=== PATIENT | female | born 1990 | race Caucasian/White ===

== ENCOUNTER 2022-05-13 09:54 | Inpatient (IN) | payer BC ==
[2022-05-13 10:29] VITALS: BMI 35.7
[2022-05-13] MEDS ORDERED: hydrALAZINE 20 MG/ML VIAL ONE (10:46)
[2022-05-13 11:22] LABS: Hemoglobin 12.1 g/dL (12.0-15.5); Mean Corpuscular HGB CONC 34.5 g/dL (32.0-36.0); Mean Platelet Volume 9.5 fl (7.4-10.4); Platelet Count 280 10x3/uL (150-450); RBC Distribution Width 13.1 % (11.5-14.5); White Blood Cell (WBC) Count 11.6 10x3/uL (3.5-10.5)
[2022-05-13 11:27] LABS: ALT (SGPT) 7 U/L (8-55); AST (SGOT) 13 U/L (5-34); Albumin 3.4 g/dL (3.5-5.0); Alkaline Phosphatase 77 U/L (40-110); Anion Gap 14 mmol/L (10-20); BUN (Urea Nitrogen) 7 mg/dL (7.0-18.7); Bilirubin, Total 0.3 mg/dL (0.2-1.2); Calc. Creatinine Clearance 235 mL/min (70-130); Calcium 8.7 mg/dL (7.8-10.44); Carbon Dioxide 19 mmol/L (22-29); Chloride 106 mmol/L (98-107); Estimated GFR 123; Glucose 168 mg/dL (70-105); Protein, Total 6.4 g/dL (6.0-8.3); Sodium 135 mmol/L (136-145)
[2022-05-13 11:50] LABS: SARS-CoV-2 NAA Rapid Test Not Detected (NotDetected)
[2022-05-13 12:18] LABS: Syphilis Antibody Nonreactive (Nonreactive); Syphilis Antibody Index 0.09 S/CO (<1.00 Non-Reactive)
[2022-05-13 12:19] LABS: HBSAg Index 0.17 S/CO (0-0.99); Hep B Surf Ag Non-Reactive S/CO (NonReactive)
[2022-05-13] MEDS ORDERED: hydrALAZINE 20 MG/ML VIAL SLOW IVP PRN (14:13)
[2022-05-13] MEDS ORDERED: Lidocaine 1% (PF) 30 ML VIAL SC PRN (14:13)
[2022-05-13] MEDS ORDERED: Promethazine HCl 25 MG/ML VIAL IM PRN (14:13)
[2022-05-13] MEDS ORDERED: Ondansetron PF 4 MG/2 ML Vial IVP PRN (14:13)
[2022-05-13] MEDS ORDERED: Oxymetazoline HCl 0.05% ( 15 ML ) NASAL PRN (20:20)
[2022-05-13] MEDS ORDERED: Acetaminophen 500 MG TAB PO PRN (21:12)
[2022-05-13] MEDS ORDERED: NIFEdipine XL 30 MG TAB PO SCH (21:45)
[2022-05-13] MEDS ORDERED: Dextrose 5% in Water 1,000 ML IV PRN (21:54)
[2022-05-13] MEDS ORDERED: HumaLOG 300 UNITS/3 ML VIAL SC PRN (21:54)
[2022-05-13] MEDS ORDERED: Dextrose 50% Abboject 50 ML SYRINGE SLOW IVP PRN (21:54)
[2022-05-13] MEDS ORDERED: Calcium Gluc 4.6 MEQ/10 ML (100 MG/ML) SLOW IVP PRN (21:57)
[2022-05-13] MEDS ORDERED: Labetalol HCl 100 MG/20 ML VIAL SLOW IVP PRN ×2 (21:57)
[2022-05-13] MEDS ORDERED: Lorazepam 2 MG/ML VIAL SLOW IVP PRN (21:57)
[2022-05-13] MEDS: INSULIN ASPART SC PRN (22:12)
[2022-05-14] MEDS: Magnesium Sulfate 20 gm/500 ml 20 GM/500 ML BAG IVPB SCH ×3 (00:30→20:03)
[2022-05-14 07:34] LABS: ALT (SGPT) 7 U/L (8-55); AST (SGOT) 13 U/L (5-34); Albumin 3.3 g/dL (3.5-5.0); Alkaline Phosphatase 83 U/L (40-110); Anion Gap 15 mmol/L (10-20); BUN (Urea Nitrogen) 10 mg/dL (7.0-18.7); Bilirubin, Total 0.3 mg/dL (0.2-1.2); Calc. Creatinine Clearance 235 mL/min (70-130); Calcium 7.8 mg/dL (7.8-10.44); Carbon Dioxide 16 mmol/L (22-29); Chloride 106 mmol/L (98-107); Estimated GFR 123; Globulin 3.4 g/dL (2.4-3.5); Glucose 132 mg/dL (70-105); Potassium 3.5 mmol/L (3.5-5.1); Protein, Total 6.7 g/dL (6.0-8.3); Sodium 133 mmol/L (136-145)
[2022-05-14] MEDS ORDERED: NIFEdipine XL 30 MG TAB PO SCH (09:00)
[2022-05-14] MEDS ORDERED: NIFEdipine XL 60 MG TAB PO SCH (09:00)
[2022-05-14] MEDS ORDERED: Betamet Acet/Betamet Na Ph 30 MG/5 ML VIAL IM SCH (09:00)
[2022-05-14] MEDS ORDERED: Famotidine/PF 20 mg/2ml Vial ONE (09:36)
[2022-05-14] MEDS ORDERED: CEFAZOLIN 2 GM VIAL ONE (09:36)
[2022-05-14] MEDS ORDERED: Morphine PF 10 MG/10 ML VIAL ONE (10:09)
[2022-05-14] MEDS ORDERED: ePHEDrine Sulfate 50 MG/10 ML VIAL ONE (10:10)
[2022-05-14] MEDS ORDERED: Dexamethasone 4 mg/ml Vial ONE (10:11)
[2022-05-14] MEDS ORDERED: Glycopyrrolate 0.2 MG/ML 5 ML SYRINGE ONE (10:11)
[2022-05-14] MEDS ORDERED: Oxytocin 10 UNITS/ML VIAL ONE (10:11)
[2022-05-14] MEDS ORDERED: PHENYLEPHRINE-NS 100 MCG/ML 10 ML SYRINGE ONE ×2 (10:11→10:55)
[2022-05-14] MEDS ORDERED: Ondansetron PF 4 MG/2 ML Vial ONE (10:11)
[2022-05-14] MEDS ORDERED: Ketorolac Tromethamine 30 MG/ML VIAL ONE ×2 (10:11→17:38)
[2022-05-14] MEDS ORDERED: Phenylephrine 40 MG/NS 250 ML 250 ML ONE (10:53)
[2022-05-14] MEDS ORDERED: Famotidine/PF 20 mg/2ml Vial SLOW IVP PRN (11:00)
[2022-05-14] MEDS ORDERED: Bicitra 30 ML UDCUP PO PRN (11:00)
[2022-05-14] MEDS ORDERED: CEFAZOLIN 2 GM in Sodium Chloride 0.9% 100 ML IVPB SCH (11:00)
[2022-05-14] MEDS ORDERED: HumaLOG 300 UNITS/3 ML VIAL SC PRN ×2 (11:04)
[2022-05-14] MEDS ORDERED: Dextrose 50% Abboject 50 ML SYRINGE SLOW IVP PRN (11:04)
[2022-05-14] MEDS ORDERED: Dextrose 5% in Water 1,000 ML IV PRN (11:04)
[2022-05-14] MEDS ORDERED: Ondansetron PF 4 MG/2 ML Vial IVP PRN (13:52)
[2022-05-14] MEDS ORDERED: Fentanyl 100 MCG/2 ML VIAL SLOW IVP PRN (13:52)
[2022-05-14] MEDS ORDERED: Moisturizing Cream (Eucerin) 113 GM JAR TOP PRN (13:52)
[2022-05-14] MEDS ORDERED: Promethazine HCl 25 MG/ML VIAL IM PRN (13:52)
[2022-05-14] MEDS ORDERED: Ondansetron HCl/PF 4 MG/2 ML Vial IVP PRN (13:52)
[2022-05-14] MEDS ORDERED: Promethazine HCl 25 MG SUPP PR PRN (13:52)
[2022-05-14] MEDS ORDERED: Naloxone HCl 0.4 mg/ml Vial IVP PRN ×2 (13:52)
[2022-05-14] MEDS ORDERED: Naloxone HCl 0.4 mg/ml Vial IV PRN (13:52)
[2022-05-14] MEDS ORDERED: diphenhydrAMINE 50 MG/ML VIAL IVP PRN (13:52)
[2022-05-14] MEDS ORDERED: Meperidine HCl/PF 25 MG/ML VIAL SLOW IVP PRN (13:52)
[2022-05-14] MEDS ORDERED: Ketorolac Tromethamine 30 MG/ML VIAL IVP SCH (14:00)
[2022-05-14] MEDS ORDERED: Communication Order-Pharmacy FS SCH (14:00)
[2022-05-14] MEDS: INSULIN ASPART SC PRN (14:16)
[2022-05-14] MEDS ORDERED: Bisacodyl 10 MG SUPP PR PRN (14:50)
[2022-05-14] MEDS ORDERED: Lorazepam 2 MG/ML VIAL SLOW IVP PRN (14:50)
[2022-05-14] MEDS ORDERED: Simethicone Chewable 80 MG TAB PO PRN (14:50)
[2022-05-14] MEDS ORDERED: Labetalol HCl 100 MG/20 ML VIAL SLOW IVP PRN (14:50)
[2022-05-14] MEDS ORDERED: hydrALAZINE 20 MG/ML VIAL SLOW IVP PRN ×2 (14:50)
[2022-05-14] MEDS ORDERED: NS w/ Oxytocin 30 units 500 ML IV SCH (14:50)
[2022-05-14] MEDS ORDERED: Lanolin Ointment 7 GM TUBE TOP PRN (14:50)
[2022-05-14] MEDS ORDERED: Calcium Gluc 4.6 MEQ/10 ML (100 MG/ML) SLOW IVP PRN (14:50)
[2022-05-14] MEDS: Ketorolac Tromethamine 30 MG/ML VIAL IVP PRN ×2 (18:00→23:05)
[2022-05-14] MEDS: Docusate 100 MG CAP PO SCH (20:05)
[2022-05-14] MEDS: Ferrous Sulfate 325 MG TAB PO SCH (23:02)
[2022-05-15] MEDS ORDERED: HYDROcodone/Acetaminophen 5/325 mg Tablet PO PRN ×3 (02:00→13:47)
[2022-05-15 03:23] LABS: Hemoglobin 10.3 g/dL (12.0-15.5); Mean Corpuscular HGB CONC 34.2 g/dL (32.0-36.0); Mean Corpuscular Volume 90.7 fl (81.6-98.3); Platelet Count 264 10x3/uL (150-450); RBC Distribution Width 13.2 % (11.5-14.5); Red Blood Cell (RBC) Count 3.32 10x6/uL (3.90-5.03); White Blood Cell (WBC) Count 12.9 10x3/uL (3.5-10.5)
[2022-05-15] MEDS: Magnesium Sulfate 20 gm/500 ml 20 GM/500 ML BAG IVPB SCH (06:36)
[2022-05-15] MEDS ORDERED: NIFEdipine XL 30 MG TAB PO SCH (09:00)
[2022-05-15] MEDS ORDERED: Prenatal Vitamin 1 TAB PO SCH (09:00)
[2022-05-15] MEDS: Docusate 100 MG CAP PO SCH ×2 (11:48→21:36)
[2022-05-15] MEDS: Ferrous Sulfate 325 MG TAB PO SCH ×2 (11:50→21:36)
[2022-05-15] MEDS ORDERED: Ondansetron PF 4 MG/2 ML Vial IVP PRN (13:47)
[2022-05-15] MEDS ORDERED: Misoprostol 200 MCG TAB PR PRN (13:47)
[2022-05-15] MEDS ORDERED: Simethicone Chewable 80 MG TAB PO PRN (13:47)
[2022-05-15] MEDS ORDERED: hydrALAZINE 20 MG/ML VIAL SLOW IVP PRN (13:47)
[2022-05-15] MEDS ORDERED: Lanolin Ointment 7 GM TUBE TOP PRN (13:47)
[2022-05-15] MEDS ORDERED: Boostrix 0.5 ML (Tdap) VIAL (>/=7 yrs of age) IM ONE (13:47)
[2022-05-15] MEDS ORDERED: NS w/ Oxytocin 30 units 500 ML IV SCH (14:00)
[2022-05-15] MEDS ORDERED: Ibuprofen 800 MG TAB PO SCH (14:00)
[2022-05-15] MEDS: Ibuprofen 800 MG TAB PO SCH ×2 (14:09→21:36)
[2022-05-15] MEDS: HYDROcodone/Acetaminophen 5/325 mg Tablet PO PRN ×2 (17:59→23:45)
[2022-05-16] MEDS: HYDROcodone/Acetaminophen 5/325 mg Tablet PO PRN ×2 (04:11→18:03)
[2022-05-16 04:22] LABS: Mean Corpuscular Hemoglobin 31.7 pg (27.0-33.0); Mean Corpuscular Volume 93.3 fl (81.6-98.3); Mean Platelet Volume 9.6 fl (7.4-10.4); Platelet Count 239 10x3/uL (150-450); RBC Distribution Width 13.5 % (11.5-14.5); Red Blood Cell (RBC) Count 3.15 10x6/uL (3.90-5.03); White Blood Cell (WBC) Count 10.6 10x3/uL (3.5-10.5)
[2022-05-16] MEDS: Ibuprofen 800 MG TAB PO SCH ×3 (05:48→21:28)
[2022-05-16] MEDS: Prenatal Vitamin 1 TAB PO SCH (07:59)
[2022-05-16] MEDS: Ferrous Sulfate 325 MG TAB PO SCH ×2 (07:59→21:28)
[2022-05-16] MEDS: NIFEdipine XL 60 MG TAB PO SCH (07:59)
[2022-05-16] MEDS: Docusate 100 MG CAP PO SCH ×2 (08:00→21:28)
[2022-05-17] MEDS: HYDROcodone/Acetaminophen 5/325 mg Tablet PO PRN ×2 (00:33→10:42)
[2022-05-17] MEDS: Ibuprofen 800 MG TAB PO SCH (05:35)
[2022-05-17 07:21] VITALS: BP 146/78; TEMP 97.5
[2022-05-17] MEDS: Ferrous Sulfate 325 MG TAB PO SCH (07:38)
[2022-05-17] MEDS: Prenatal Vitamin 1 TAB PO SCH (07:39)
[2022-05-17] MEDS: Docusate 100 MG CAP PO SCH (07:39)
[2022-05-17] MEDS: NIFEdipine XL 60 MG TAB PO SCH (07:39)
== END 2022-05-17 11:30 | disposition home or self-care (01) | DRG 786 ==
LOC: CSHLD/OP 09:54 → CSHLD 20:26 → CSHPP 05-15 13:58
PROVIDERS: ADMIT Obstetrics & Gynecology; ATTEND Obstetrics & Gynecology
PROC: 10D00Z1 Extraction of Products of Conception, Low, Open Approach (ICD-10-PCS; principal; 2022-05-14)
DX: O10.92 Unspecified pre-existing hypertension complicating childbirth (principal); O24.02 Pre-existing type 1 diabetes mellitus, in childbirth; Z3A.32 32 weeks gestation of pregnancy; Z37.0 Single live birth; E10.9 Type 1 diabetes mellitus without complications; F41.9 Anxiety disorder, unspecified; O99.344 Other mental disorders complicating childbirth; Z87.440 Personal history of urinary (tract) infections; Z79.4 Long term (current) use of insulin; Z79.899 Other long term (current) drug therapy; O32.1XX0 Maternal care for breech presentation, not applicable or unspecified; O43.893 Other placental disorders, third trimester; O11.4 Pre-existing hypertension with pre-eclampsia, complicating childbirth
CPT/HCPCS: 36415; 51702; 80053; 85027; 86780; 86850; 86900; 86901; 87340; 88307; 99285; J0360; J1100; J1885; J2274; J2310; J2405; J2590; J3475; S0028

== ENCOUNTER 2025-04-09 12:00 | Day surgery (SDC) | payer BC ==
[2025-04-09 12:24] VITALS: BMI 35.4
[2025-04-09] MEDS ORDERED: hydrALAZINE 20 MG/ML VIAL SLOW IVP PRN (12:46)
[2025-04-09 13:12] LABS: Protein, Urine Random Quant 54.0 mg/dL (1-14)
[2025-04-09 13:47] LABS: #Basophils Less than 0.03 10x3/uL (0.0-0.2); #Eosinophils 0.03 10x3/uL (0.0-0.5); #Monocytes 0.43 10x3/uL (0.0-1.1); #Neutrophils 6.09 10x3/uL (1.5-8.4); %Basophils 0.2 % (0.0-2.0); %Eosinophils 0.3 % (0.0-6.0); %Lymphocytes 24.9 % (18.0-47.0); %Monocytes 4.9 % (0.0-10.0); %Neutrophils 69.2 % (40.0-75.0); Hematocrit 34.0 % (34.9-44.5); Hemoglobin 11.6 g/dL (12.0-15.5); Mean Corpuscular Hemoglobin 30.6 pg (27.0-33.0); Mean Corpuscular Volume 89.7 fL (81.6-98.3); Platelet Count 288 10x3/uL (150-450); Red Blood Cell (RBC) Count 3.79 10x6/uL (3.90-5.03); White Blood Cell (WBC) Count 8.80 10x3/uL (3.5-10.5)
[2025-04-09 13:55] LABS: ALT (SGPT) Less than 7 U/L (Less than 34); AST (SGOT) 24 U/L (11-34); Albumin 2.6 g/dL (3.1-4.5); Alkaline Phosphatase 91 U/L (40-110); Anion Gap 12 mmol/L (10-20); BUN (Urea Nitrogen) 8 mg/dL (7.0-18.7); Bilirubin, Total 0.2 mg/dL (0.3-1.2); Calc. Creatinine Clearance 220 mL/min (70-130); Calcium 8.5 mg/dL (7.8-10.44); Carbon Dioxide 21 mmol/L (22-29); Chloride 105 mmol/L (98-107); Globulin 3.9 g/dL (2.4-3.5); Glucose 103 mg/dL (70-105); Potassium 4.0 mmol/L (3.5-5.1); Sodium 134 mmol/L (136-145)
== END 2025-04-09 16:37 | disposition home or self-care (01) ==
LOC: CSHLD/OP 12:00
PROVIDERS: ATTEND Obstetrics & Gynecology
DX: O10.913 Unspecified pre-existing hypertension complicating pregnancy, third trimester (principal); O24.113 Pre-existing type 2 diabetes mellitus, in pregnancy, third trimester; O34.211 Maternal care for low transverse scar from previous cesarean delivery; O47.03 False labor before 37 completed weeks of gestation, third trimester; Z3A.35 35 weeks gestation of pregnancy; Z79.4 Long term (current) use of insulin; Z79.899 Other long term (current) drug therapy
CPT/HCPCS: 76819; 80053; 82570; 84156; 85025; 99284